=== PATIENT | female | born 1940 | race Caucasian/White ===

== ENCOUNTER → 2016-08-08 | Outpatient (CLI) | payer MEDICARE, BC, OTHER ==
[~2016-08-08] VITALS: Ht 162.6 cm; Wt 65.8 kg
[~2016-08-08] MED LIST: BUPR300T34 PO; HYDR12.55 PO; LIDOCAINE 2% INJ 100 MG/5 ML SDV (FOR ANES.) As Ordered ONE; LOSA100T36 PO; NS 1,000 ML IV SCH; PROPOFOL 200 MG/20 ML VIAL As Ordered ONE; SIMV40TA2 PO; ePHEDrine SULFATE 25 MG/5 ML(5MG/ML) SYRINGE As Ordered ONE
--- NOTE | 2016-08-08 13:03 | ROOR ---
Patient Name: Pema Manjarrez Procedure Date: 08/08/2016 12:31 PM Date of : 1940 Age: 75 [place] [facility] [place] Female Note Status: Finalized Procedure: Colonoscopy to Cecum + Hot Snare Polypectomy + Hemoclips Indications: Screening for colorectal malignant neoplasm Providers: Ad Pierson MD Referring MD: NERY TAO JR, MD Requesting Provider: Medicines: Monitored Anesthesia Care Complications: No immediate complications. Procedure: Pre-Anesthesia Assessment: - The heart rate, respiratory rate, oxygen saturations, blood pressure, adequacy of pulmonary ventilation, and response to care were monitored throughout the procedure. The Colonoscope was introduced through the anus and advanced to the cecum, identified by appendiceal orifice and ileocecal valve. The colonoscopy was performed without difficulty. The patient tolerated the procedure well. The quality of the bowel preparation was good. Findings: The perianal and digital rectal examinations were normal. Non-bleeding internal hemorrhoids were found during retroflexion. The hemorrhoids were small and Grade I (internal hemorrhoids that do not prolapse). Scattered small and large-mouthed diverticula were found in the recto-sigmoid colon, in the sigmoid colon and in the descending colon. A medium polyp was found at 40 cm proximal to the anus. The polyp was semi-pedunculated. The polyp was removed with a hot snare. Resection and retrieval were complete. To prevent bleeding after the polypectomy, two hemostatic clips were successfully placed (MR conditional). There was no bleeding at the end of the procedure. The exam was otherwise without abnormality on direct and retroflexion views. Impression: - Non-bleeding internal hemorrhoids. - Diverticulosis in the recto-sigmoid colon, in the sigmoid colon and in the descending colon. - One medium polyp at 40 cm proximal to the anus, removed with a hot snare. Resected and retrieved. Clips (MR conditional) were placed. - The examination was otherwise normal on direct and retroflexion views. - The exam was otherwise normal to the cecum. Recommendation: - Patient has a contact number available for emergencies. The signs and symptoms of potential delayed complications were discussed with the patient. Return to normal activities tomorrow. Written discharge instructions were provided to the patient. - High fiber diet. - Discharge patient to home. - Continue present medications. - Await pathology results. - Telephone GI clinic for pathology results in 1 week. - Repeat colonoscopy for surveillance based on pathology results. - Return to referring physician. - The findings and recommendations were discussed with the patient's family. Ad Pierson MD Ad Pierson MD 08/08/2016 1:02:43 PM This report has been signed electronically. Number of Addenda: 0 Note Initiated On: 08/08/2016 12:31 PM Estimated Blood Loss: Estimated blood loss: none.
[2016-08-08 13:25] VITALS: BP 120/66
== END ==
LOC: M OPP 11:42
PROVIDERS: ATTEND Internal Medicine Gastroenterology
DX: Z12.11 Encounter for screening for malignant neoplasm of colon (principal); D12.5 Benign neoplasm of sigmoid colon; K57.30 Diverticulosis of large intestine without perforation or abscess without bleeding; K64.0 First degree hemorrhoids; I10 Essential (primary) hypertension; E78.5 Hyperlipidemia, unspecified; R23.3 Spontaneous ecchymoses; M19.90 Unspecified osteoarthritis, unspecified site; F41.9 Anxiety disorder, unspecified; Z80.3 Family history of malignant neoplasm of breast; Z92.3 Personal history of irradiation; Z85.840 Personal history of malignant neoplasm of eye; Z79.899 Other long term (current) drug therapy; F17.200 Nicotine dependence, unspecified, uncomplicated

== ENCOUNTER → 2016-08-24 | Day surgery (SDC) | payer MEDICARE, BC, OTHER ==
[~2016-08-24] VITALS: Ht 162.6 cm; Wt 68.0 kg
[~2016-08-24] MED LIST changes: +ACETAMINOPHEN 325 MG TAB PO PRN; +AcetaZOLAMIDE 500 MG ER CAP PO ONE; +BSS with VANC/TOB/EPI for EYE CASES IR ONE; +CYCLOPENTOLATE 2% OPHTH SOLN OD ONE; +D5W/0.2% SODIUM CHLORIDE 250 ML IV SCH; +HEALON DUET (HEALON 10MG/ML 0.55ML & HEALON ENDOCOAT 30MG/ML 0.85ML) As Ordered ONE; +HEALON DUET (HEALON 10MG/ML 0.55ML & HEALON ENDOCOAT 30MG/ML 0.85ML) XX ONE; +KETOROLAC 0.5% OPHTH SOLN OD ONE; +LIDOCAINE 1% SDV 5 ML VIAL As Ordered ONE; +LIDOCAINE 1% SDV 5 ML VIAL XX ONE; -LIDOCAINE 2% INJ 100 MG/5 ML SDV (FOR ANES.) As Ordered ONE; +LIDOCAINE 4% INJ 5 ML AMP OU ONE; +LIDOCAINE W/EPINEPHRINE 1% 20ML VIAL XX ONE; +MIDAZOLAM INJ 2 MG/2 ML VIAL (J2250) As Ordered ONE; +MOXIFLOXACIN IN BSS 0.25MG/0.25ML INTRACAMERAL INJ (OR EYE ONLY)(J2280) As Ordered ONE; +MOXIFLOXACIN IN BSS 0.25MG/0.25ML INTRACAMERAL INJ (OR EYE ONLY)(J2280) ICAM ONE; -NS 1,000 ML IV SCH; +OFLOXACIN 0.3 % (OCUFLOX) OPTH SOL 5ML XX ONE; +PHENYLEPHRINE 2.5% OPHTH SOL 2ML OD ONE; +POVIDONE-IODINE 5% OPHTH PREP SOL 30ML As Ordered ONE; +PROPARACAINE 0.5% OPHTH SOL 15ML OD PRN; -PROPOFOL 200 MG/20 ML VIAL As Ordered ONE; +TRIAMCINOLONE PRES FR 40 MG/ML 1ML(TRIESENCE)(OR EYE ONLY)(J3300 PER 1MG) As Ordered ONE; +TRIAMCINOLONE PRES FR 40 MG/ML 1ML(TRIESENCE)(OR EYE ONLY)(J3300 PER 1MG) IO ONE; +TRIMETHOBENZAMIDE 300 MG CAP PO PRN; +TROPICAMIDE 1% OPHTH SOLN 2 ML OD ONE; -ePHEDrine SULFATE 25 MG/5 ML(5MG/ML) SYRINGE As Ordered ONE; +fentaNYL 100 MCG/2 ML INJECTION (J3010) As Ordered ONE
[2016-08-24 11:20] VITALS: BP 111/63
== END | disposition home or self-care (01) ==
LOC: M SDC 06:37
PROVIDERS: ATTEND Ophthalmology
DX: H26.9 Unspecified cataract (principal); I10 Essential (primary) hypertension; E78.5 Hyperlipidemia, unspecified; Z92.3 Personal history of irradiation; Z79.899 Other long term (current) drug therapy; F17.210 Nicotine dependence, cigarettes, uncomplicated; Z85.828 Personal history of other malignant neoplasm of skin
CPT/HCPCS: 66984; J2250; J2280; J3010; J3300; V2632

== ENCOUNTER → 2017-01-04 | Outpatient (CLI) | payer MEDICARE, BC, OTHER ==
[~2017-01-04] MED LIST changes: -ACETAMINOPHEN 325 MG TAB PO PRN; -AcetaZOLAMIDE 500 MG ER CAP PO ONE; -BSS with VANC/TOB/EPI for EYE CASES IR ONE; -CYCLOPENTOLATE 2% OPHTH SOLN OD ONE; -D5W/0.2% SODIUM CHLORIDE 250 ML IV SCH; -HEALON DUET (HEALON 10MG/ML 0.55ML & HEALON ENDOCOAT 30MG/ML 0.85ML) As Ordered ONE; -HEALON DUET (HEALON 10MG/ML 0.55ML & HEALON ENDOCOAT 30MG/ML 0.85ML) XX ONE; -KETOROLAC 0.5% OPHTH SOLN OD ONE; -LIDOCAINE 1% SDV 5 ML VIAL As Ordered ONE; -LIDOCAINE 1% SDV 5 ML VIAL XX ONE; -LIDOCAINE 4% INJ 5 ML AMP OU ONE; -LIDOCAINE W/EPINEPHRINE 1% 20ML VIAL XX ONE; -MIDAZOLAM INJ 2 MG/2 ML VIAL (J2250) As Ordered ONE; -MOXIFLOXACIN IN BSS 0.25MG/0.25ML INTRACAMERAL INJ (OR EYE ONLY)(J2280) As Ordered ONE; -MOXIFLOXACIN IN BSS 0.25MG/0.25ML INTRACAMERAL INJ (OR EYE ONLY)(J2280) ICAM ONE; -OFLOXACIN 0.3 % (OCUFLOX) OPTH SOL 5ML XX ONE; -PHENYLEPHRINE 2.5% OPHTH SOL 2ML OD ONE; -POVIDONE-IODINE 5% OPHTH PREP SOL 30ML As Ordered ONE; -PROPARACAINE 0.5% OPHTH SOL 15ML OD PRN; -TRIAMCINOLONE PRES FR 40 MG/ML 1ML(TRIESENCE)(OR EYE ONLY)(J3300 PER 1MG) As Ordered ONE; -TRIAMCINOLONE PRES FR 40 MG/ML 1ML(TRIESENCE)(OR EYE ONLY)(J3300 PER 1MG) IO ONE; -TRIMETHOBENZAMIDE 300 MG CAP PO PRN; -TROPICAMIDE 1% OPHTH SOLN 2 ML OD ONE; -fentaNYL 100 MCG/2 ML INJECTION (J3010) As Ordered ONE
--- NOTE | 2017-01-04 09:53 | REPMRS ---
Patient History The patient states she had a clinical breast exam in November 2016. Patient is postmenopausal and has history of other cancer at age 37. Family history of breast cancer in mother at age 50 or over. Took hormonal contraceptives for 9 years. Took unspecified hormones for 6 months. Digital Mammo Screening Bilat: January 04, 2017 - Exam #: [id number] Bilateral CC and MLO view(s) were taken. Technologist: Ally Jc, Technologist Prior study comparison: December 29, 2015, bilateral digital mammo screening bilat performed at [facility]. December 10, 2014, bilateral digital mammo screening bilat performed at [facility]. FINDINGS: The breast tissue is heterogeneously dense. This may lower the sensitivity of mammography. There has been no change in the appearance of the mammogram from the prior studies. There is a moderate amount of residual fibroglandular tissue which is fairly symmetric. There is no interval development of dominant mass, areas of architectural distortion, or clustered microcalcification typical of malignancy. ASSESSMENT: BI-RADS/ACR category 1 mammogram. Negative. Recommendation Routine screening mammogram in 1 year (for women over age 40). This mammogram was interpreted with the aid of an FDA-approved computer-aided dectection system. Electronically Signed By: Omar Doyle MD 01/04/17 0952
== END ==
LOC: M RAD 08:29
PROVIDERS: ATTEND Nurse Practitioner Adult Health
DX: Z12.31 Encounter for screening mammogram for malignant neoplasm of breast (principal)

== ENCOUNTER → 2017-01-23 | Outpatient (REF) | payer MEDICARE, OTHER ==
[~2017-01-23] MED LIST changes: +VITA500046 PO
== END ==
LOC: M LAB REF 11:53
PROVIDERS: ATTEND Nurse Practitioner Adult Health
DX: E03.9 Hypothyroidism, unspecified (principal)

== ENCOUNTER 2017-02-15 07:39 | Outpatient (CLI) | payer MEDICARE, BC, OTHER ==
[~2017-02-15] VITALS: Ht 162.6 cm; Wt 68.0 kg
[2017-02-15] MEDS ORDERED: LIDOCAINE 2% INJ 100 MG/5 ML SDV (FOR ANES.) As Ordered ONE (07:54)
[2017-02-15] MEDS ORDERED: PROPOFOL 200 MG/20 ML VIAL As Ordered ONE ×2 (07:54→08:41)
[2017-02-15] MEDS ORDERED: NS 1,000 ML IV ONE (08:45)
--- NOTE | 2017-02-15 08:53 | ROOR ---
Patient Name: Pema Manjarrez Procedure Date: 02/15/2017 8:25 AM Date of : 1940 Age: 76 Room: [facility] Gender: Female Note Status: Finalized Procedure: Total Colonoscopy to Cecum Indications: High risk colon cancer surveillance: Personal history of adenoma with high grade dysplasia, High risk colon cancer surveillance: Personal history of adenoma with villous component Providers: Ad Pierson MD Referring MD: NERY TAO JR, MD Requesting Provider: Medicines: Monitored Anesthesia Care Complications: No immediate complications. Procedure: Pre-Anesthesia Assessment: - The heart rate, respiratory rate, oxygen saturations, blood pressure, adequacy of pulmonary ventilation, and response to care were monitored throughout the procedure. The Colonoscope was introduced through the anus and advanced to the cecum, identified by appendiceal orifice and ileocecal valve. The colonoscopy was performed without difficulty. The patient tolerated the procedure well. The quality of the bowel preparation was excellent. Findings: The perianal and digital rectal examinations were normal. Non-bleeding internal hemorrhoids were found during retroflexion. The hemorrhoids were small and Grade I (internal hemorrhoids that do not prolapse). Multiple small and large-mouthed diverticula were found in the recto-sigmoid colon, sigmoid colon, descending colon and splenic flexure. The exam was otherwise without abnormality on direct and retroflexion views. Impression: - Non-bleeding internal hemorrhoids. - Diverticulosis in the recto-sigmoid colon, in the sigmoid colon, in the descending colon and at the splenic flexure. - The examination was otherwise normal on direct and retroflexion views. - No specimens collected. - The exam was otherwise normal to the cecum. Recommendation: - Patient has a contact number available for emergencies. The signs and symptoms of potential delayed complications were discussed with the patient. Return to normal activities tomorrow. Written discharge instructions were provided to the patient. - High fiber diet. - Discharge patient to home. - Continue present medications. - Repeat colonoscopy in 2 years for surveillance. - Return to referring physician. - The findings and recommendations were discussed with the patient's family. Ad Pierson MD Ad Pierson MD 02/15/2017 8:52:56 AM This report has been signed electronically. Number of Addenda: 0 Note Initiated On: 02/15/2017 8:25 AM Estimated Blood Loss: Estimated blood loss: none.
[2017-02-15 09:13] VITALS: BP 130/67
== END 2017-02-15 09:15 | disposition home or self-care (01) ==
LOC: M OPP 07:39
PROVIDERS: ATTEND Internal Medicine Gastroenterology
DX: Z09 Encounter for follow-up examination after completed treatment for conditions other than malignant neoplasm (principal); Z86.010 Personal history of colon polyps; K64.0 First degree hemorrhoids; K57.30 Diverticulosis of large intestine without perforation or abscess without bleeding; I10 Essential (primary) hypertension; E78.5 Hyperlipidemia, unspecified; R23.3 Spontaneous ecchymoses; M19.90 Unspecified osteoarthritis, unspecified site; F41.9 Anxiety disorder, unspecified; Z78.0 Asymptomatic menopausal state; Z85.828 Personal history of other malignant neoplasm of skin; Z92.3 Personal history of irradiation; F17.210 Nicotine dependence, cigarettes, uncomplicated; Z79.899 Other long term (current) drug therapy; Z80.3 Family history of malignant neoplasm of breast

== ENCOUNTER → 2017-06-21 | Outpatient (REF) | payer MEDICARE, OTHER | LOC: M LAB REF 13:14 | PROVIDERS: ATTEND Nurse Practitioner Adult Health | DX: E03.9 Hypothyroidism, unspecified (principal) ==

== ENCOUNTER → 2017-09-19 | Outpatient (REF) | payer MEDICARE, OTHER ==
[2017-09-19 12:44] LABS: INFLUENZA A AMPLIFICATION NEGATIVE (NEGATIVE); INFLUENZA B AMPLIFICATION NEGATIVE (NEGATIVE)
== END ==
LOC: M LAB REF 11:43
DX: J11.1 Influenza due to unidentified influenza virus with other respiratory manifestations (principal)
CPT/HCPCS: 87502

== ENCOUNTER → 2018-01-05 | Outpatient (CLI) | payer MEDICARE, BC, OTHER | LOC: M RAD 08:35 | DX: Z12.31 Encounter for screening mammogram for malignant neoplasm of breast (principal) | CPT/HCPCS: 77067 ==

== ENCOUNTER → 2019-01-07 | Outpatient (CLI) | payer MEDICARE, BC, OTHER ==
[~2019-01-07] MED LIST changes: -LOSA100T36 PO; +LOSA100T50 PO
--- NOTE | 2019-01-07 10:23 | REPMRS ---
Patient History The patient states she had a clinical breast exam in 2018. Family history of breast cancer at age 50 or over in mother. Took hormonal contraceptives for 9 years. Took unspecified hormones for 6 months. Digital Mammo Screening Bilat: January 07, 2019 - Exam #: [id number] Bilateral CC and MLO view(s) were taken. Technologist: Susi Ramirez Technologist Prior study comparison: December 10, 2014, bilateral digital mammo screening bilat performed at [facility]. FINDINGS: The breast tissue is heterogeneously dense. This may lower the sensitivity of mammography. Bilateral screening digital mammogram with tomosynthesis: The patient states that there are no parpable breast lumps or other breast complaints. The patient's [place] Lifetime Breast Carcinoma Risk is:6.1% The breasts are heterogeniously dense, which may obscure small masses. There has been no interval development of dominant mass, area of adchitectural distortion, or clustered microcalcifications typical of malignancy. . There are no additional findings with tomosynthesis. Cutaneous markers identify skin lesions on the right. No significant changes when compared with prior studies. Assessment: BI-RADS/ACR category 1 mammogram. Negative Mammogram. Recommendation Routine screening mammogram in 1 year. Electronically Signed By: Omar Welch M.D. 01/07/19 1022
== END ==
LOC: M RAD 09:19
PROVIDERS: ATTEND Nurse Practitioner Adult Health
DX: Z12.31 Encounter for screening mammogram for malignant neoplasm of breast (principal); Z80.3 Family history of malignant neoplasm of breast; Z92.0 Personal history of contraception

== ENCOUNTER 2019-09-09 07:28 | Day surgery (SDC) | payer MEDICARE, BC, OTHER ==
[~2019-09-09] VITALS: Ht 160 cm; Wt 70.3 kg
[~2019-09-09 07:28] MED LIST changes: +ASPI81TA85 PO; -BUPR300T34 PO; +BUPR300T92 PO; +NS 1,000 ML IV ONE; -SIMV40TA2 PO; +SIMV40TA20 PO; +SYNT50TA PO; +VITA500079 PO
[2019-09-09] MEDS ORDERED: propofoL 200 MG/20 ML VIAL As Ordered ONE (08:22)
[2019-09-09] MEDS ORDERED: LIDOCAINE 2% INJ 100 MG/5 ML SDV (FOR ANES.) As Ordered ONE (08:22)
--- NOTE | 2019-09-09 09:01 | ROOR ---
Patient Name: Pema Manjarrez Procedure Date: 09/09/2019 8:31 AM Date of : 1940 Age: 78 Room: [facility] Gender: Female Note Status: Finalized Procedure: Total Colonoscopy to Cecum Indications: High risk colon cancer surveillance: Personal history of colonic polyps, Incidental - Follow-up for history of colon polyps of uncertain behavior Providers: Ad Pierson MD Referring MD: NERY TAO JR, MD Requesting Provider: Medicines: Monitored Anesthesia Care Complications: No immediate complications. Procedure: Pre-Anesthesia Assessment: - The heart rate, respiratory rate, oxygen saturations, blood pressure, adequacy of pulmonary ventilation, and response to care were monitored throughout the procedure. The Colonoscope was introduced through the anus and advanced to the cecum, identified by appendiceal orifice and ileocecal valve. The colonoscopy was performed without difficulty. The patient tolerated the procedure well. The quality of the bowel preparation was excellent. Findings: The perianal and digital rectal examinations were normal. Non-bleeding internal hemorrhoids were found during retroflexion. The hemorrhoids were small and Grade I (internal hemorrhoids that do not prolapse). Multiple small and large-mouthed diverticula were found in the recto-sigmoid colon, sigmoid colon and descending colon. The exam was otherwise without abnormality on direct and retroflexion views. Impression: - Non-bleeding internal hemorrhoids. - Diverticulosis in the recto-sigmoid colon, in the sigmoid colon and in the descending colon. - The examination was otherwise normal on direct and retroflexion views. - No specimens collected. - The exam was otherwise normal to the cecum. Recommendation: - Patient has a contact number available for emergencies. The signs and symptoms of potential delayed complications were discussed with the patient. Return to normal activities tomorrow. Written discharge instructions were provided to the patient. - High fiber diet. - Discharge patient to home. - Continue present medications. - Repeat colonoscopy for symptoms only. - Return to referring physician. - The findings and recommendations were discussed with the patient's family. Ad Pierson MD Ad Pierson MD 09/09/2019 9:01:07 AM Electronically signed by Ad Pierson MD Number of Addenda: 0 Note Initiated On: 09/09/2019 8:31 AM Estimated Blood Loss: Estimated blood loss: none.
[2019-09-09 09:20] VITALS: BP 123/60
== END 2019-09-09 09:32 | disposition home or self-care (01) ==
LOC: M OPP 07:28
PROVIDERS: ATTEND Internal Medicine Gastroenterology
DX: Z12.11 Encounter for screening for malignant neoplasm of colon (principal); Z86.010 Personal history of colon polyps; K57.30 Diverticulosis of large intestine without perforation or abscess without bleeding; K64.0 First degree hemorrhoids; Z79.82 Long term (current) use of aspirin; Z79.899 Other long term (current) drug therapy; F17.210 Nicotine dependence, cigarettes, uncomplicated

== ENCOUNTER → 2020-03-13 | Outpatient (CLI) | payer MEDICARE, BC ==
[~2020-03-13] MED LIST changes: -ASPI81TA85 PO; +ASPI81TA86 PO; -NS 1,000 ML IV ONE
--- NOTE | 2020-03-13 12:04 | REPMRS ---
Patient History The patient states she has not had a clinical breast exam in over a year. Family history of breast cancer at age 50 or over in mother. Took hormonal contraceptives for 9 years. Took unspecified hormones for 6 months. Digital Woman Screen Mammo: March 13, 2020 - Exam #: [id number] Bilateral CC and MLO view(s) were taken. Technologist: Tri Simental, Technologist Prior study comparison: January 07, 2019, bilateral digital mammo screening bilat, performed at [facility]. January 05, 2018, bilateral digital mammo screening bilat, performed at [facility]. January 04, 2017, bilateral digital mammo screening bilat, performed at [facility]. FINDINGS: The breast tissue is heterogeneously dense. This may lower the sensitivity of mammography. The Volpara volumetric breast density category is: C. There is a moderate amount of heterogeneously dense fibroglandular tissue which is fairly symmetric. There is no interval development of dominant mass, architectural distortion, or grouped microcalcification typical of malignancy. There has been no change in the appearance of the mammogram from the prior studies. 3-D tomosynthesis shows no additional findings. Assessment: BI-RADS/ACR category 1 mammogram. Negative Mammogram. Recommendation Routine screening mammogram of both breasts in 1 year (for women over age 40). This patient's Lifetime Breast Cancer RIsk is estimated at 5.5 %. This mammogram was interpreted with the aid of an FDA-approved computer-aided dectection system. Electronically Signed By: Neto Cai MD 03/13/20 [id number]
== END ==
LOC: M WHC 07:57
PROVIDERS: ATTEND Registered Nurse
DX: Z12.31 Encounter for screening mammogram for malignant neoplasm of breast (principal); Z80.3 Family history of malignant neoplasm of breast; Z92.0 Personal history of contraception

== ENCOUNTER → 2021-02-15 | Outpatient (CLI) | payer MEDICARE, BC ==
[~2021-02-15] MED LIST changes: +LOSA100T45 PO; -LOSA100T50 PO
== END ==
LOC: M WHC 07:43
PROVIDERS: ATTEND Nurse Practitioner Adult Health
DX: Z12.31 Encounter for screening mammogram for malignant neoplasm of breast (principal)

== ENCOUNTER → 2021-03-01 | Outpatient (CLI) | payer MEDICARE, BC ==
[~2021-03-01] MED LIST changes: -LOSA100T45 PO; +LOSA100T50 PO
--- NOTE | 2021-03-01 08:59 | REP ---
INDICATION: Dense breasts COMPARISON: No prior ultrasounds for comparison TECHNIQUE: Real-time sonographic evaluation of each breast was obtained using anatomical intelligence and shear wave elastography when necessary. FINDINGS: There are no cystic or solid masses. IMPRESSION: ACR category 2 benign bilateral whole breast screening ultrasound <Electronically signed by Kenneth Waddell > 03/01/21 0856
== END ==
LOC: M WHC 07:17
PROVIDERS: ATTEND Nurse Practitioner Adult Health
DX: R92.2 Inconclusive mammogram (principal)

== ENCOUNTER → 2021-09-13 | Outpatient (REF) | payer MEDICARE, BC ==
[~2021-09-13] MED LIST changes: +LOSA100T45 PO; -LOSA100T50 PO
[2021-09-13 16:07] LABS: TOTAL PROTEIN 6.7 GM/DL (6.4-8.2)
== END ==
LOC: M LAB REF 13:01
PROVIDERS: ATTEND Internal Medicine Nephrology
DX: N18.31 Chronic kidney disease, stage 3a (principal)

== ENCOUNTER → 2021-09-21 | Outpatient (CLI) | payer MEDICARE, BC, OTHER | LOC: M RAD 12:33 | PROVIDERS: ATTEND Internal Medicine Nephrology | DX: N17.9 Acute kidney failure, unspecified (principal); N28.1 Cyst of kidney, acquired ==

== ENCOUNTER → 2022-06-06 | Outpatient (REF) | payer MEDICARE, BC, OTHER | LOC: M SFHCDERM 17:19 | PROVIDERS: ATTEND Dermatology | DX: L81.4 Other melanin hyperpigmentation (principal) ==

== ENCOUNTER → 2022-07-01 | Outpatient (REF) | payer MEDICARE, BC, OTHER | LOC: M LAB REF 17:01 | PROVIDERS: ATTEND Physician Assistant | DX: R50.9 Fever, unspecified (principal) ==

== ENCOUNTER → 2022-09-01 | Outpatient (CLI) | payer MEDICARE, BC, OTHER | LOC: M WHC 13:58 | PROVIDERS: ATTEND Nurse Practitioner Adult Health | DX: Z13.820 Encounter for screening for osteoporosis (principal); Z12.31 Encounter for screening mammogram for malignant neoplasm of breast; M85.851 Other specified disorders of bone density and structure, right thigh; M85.852 Other specified disorders of bone density and structure, left thigh ==

== ENCOUNTER → 2023-08-07 | Outpatient (REF) | payer MEDICARE, BC, OTHER ==
[~2023-08-07] MED LIST changes: -LOSA100T45 PO; +LOSA100T46 PO
== END ==
LOC: M SFHCDERM 14:07
PROVIDERS: ATTEND Physician Assistant
DX: C44.729 Squamous cell carcinoma of skin of left lower limb, including hip (principal)

== ENCOUNTER → 2023-09-20 | Outpatient (CLI) | payer MEDICARE, BC, OTHER | LOC: M WHC 07:28 | PROVIDERS: ATTEND Nurse Practitioner Adult Health | DX: Z12.31 Encounter for screening mammogram for malignant neoplasm of breast (principal) ==

== ENCOUNTER → 2023-10-27 | Outpatient (REF) | payer MEDICARE, BC ==
[2023-10-27 18:51] LABS: TOTAL PROTEIN,RANDOM URINE 57.4 MG/DL (0.0-14.0)
[2023-10-27 19:09] LABS: CREATININE,RANDOM URINE 300.1 MG/DL
== END ==
LOC: M LAB REF 16:55
PROVIDERS: ATTEND Internal Medicine Nephrology
DX: N17.9 Acute kidney failure, unspecified (principal)

== ENCOUNTER → 2024-02-28 | Outpatient (CLI) | payer MEDICARE, BC ==
[~2024-02-28] MED LIST changes: +BUPR-597 PO; -BUPR300T92 PO
== END ==
LOC: M ONCR 07:57
PROVIDERS: ATTEND General Practice
DX: C43.39 Malignant melanoma of other parts of face (principal); F17.210 Nicotine dependence, cigarettes, uncomplicated; Z98.890 Other specified postprocedural states; Z80.3 Family history of malignant neoplasm of breast; Z79.890 Hormone replacement therapy; Z79.82 Long term (current) use of aspirin; Z79.899 Other long term (current) drug therapy

== ENCOUNTER 2024-03-14 13:56 | Outpatient (RCR) | payer MEDICARE, BC | END 2024-03-16 | LOC: M ONCR 13:56 | PROVIDERS: ATTEND General Practice | DX: Z51.0 Encounter for antineoplastic radiation therapy (principal); C43.30 Malignant melanoma of unspecified part of face ==

== ENCOUNTER → 2024-04-15 | Outpatient (RCR) | payer MEDICARE, BC | LOC: M ONCR 03-19 10:41 | PROVIDERS: ATTEND General Practice | DX: Z51.0 Encounter for antineoplastic radiation therapy (principal); C43.30 Malignant melanoma of unspecified part of face ==

== ENCOUNTER 2024-04-30 12:15 | Outpatient (RCR) | payer MEDICARE, BC | END 2024-05-16 | LOC: M ONCR 12:15 | PROVIDERS: ATTEND General Practice | DX: Z51.0 Encounter for antineoplastic radiation therapy (principal); C43.30 Malignant melanoma of unspecified part of face ==

== ENCOUNTER → 2024-06-06 | Outpatient (CLI) | payer MEDICARE, BC | LOC: M ONCR 11:30 | PROVIDERS: ATTEND General Practice | DX: C43.30 Malignant melanoma of unspecified part of face (principal); L59.8 Other specified disorders of the skin and subcutaneous tissue related to radiation; W88.8XXA Exposure to other ionizing radiation, initial encounter ==

== ENCOUNTER → 2024-09-23 | Outpatient (CLI) | payer MEDICARE, BC | LOC: M WHC 08:21 | PROVIDERS: ATTEND Nurse Practitioner Adult Health | DX: Z12.31 Encounter for screening mammogram for malignant neoplasm of breast (principal) ==

== ENCOUNTER → 2024-11-05 | Outpatient (CLI) | payer MEDICARE, BC | LOC: M ONCR 11:17 | PROVIDERS: ATTEND General Practice | DX: D48.5 Neoplasm of uncertain behavior of skin (principal); Z85.820 Personal history of malignant melanoma of skin; F17.210 Nicotine dependence, cigarettes, uncomplicated; Z79.890 Hormone replacement therapy; Z79.82 Long term (current) use of aspirin; Z79.899 Other long term (current) drug therapy; Z92.3 Personal history of irradiation; Z98.890 Other specified postprocedural states ==